=== PATIENT | male | born 1950 | race African-American/Black ===

== ENCOUNTER 2021-12-17 04:55 | Emergency (ER) | payer OTHER ==
[~2021-12-17] VITALS: Ht 185.4 cm; Wt 93.1 kg
[2021-12-17 08:48] LABS: BASOPHILS % (AUTO) 0.6 % (0-1); EOSINOPHILS # (AUTO) 0.1 X10'3 (0-0.9); EOSINOPHILS % (AUTO) 2.9 % (0-6); HEMATOCRIT 36.7 % (42.0-52.0); HEMOGLOBIN 11.7 g/dl (14.0-17.9); LYMPHOCYTES # (AUTO) 0.8 X10'3 (1.1-4.8); LYMPHOCYTES % (AUTO) 17.4 % (21-51); MEAN CORPUSCULAR HEMOGLOBIN 26.6 PG (27.0-31.0); MEAN CORPUSCULAR HGB CONC 31.9 g/dL (33.0-36.5); MEAN CORPUSCULAR VOLUME 83.5 FL (78-98); MEAN PLATELET VOLUME 7.4 FL (7.4-10.4); MONOCYTES # (AUTO) 0.4 X10'3 (0-0.9); MONOCYTES % (AUTO) 8.6 % (2-12); NEUTROPHILS # (AUTO) 3.2 X10'3 (1.8-7.7); NEUTROPHILS % (AUTO) 70.5 % (42-75); PLATELET COUNT 277 X10'3 (140-440); RED BLOOD COUNT 4.39 X10'6 (4.70-6.10); RED CELL DISTRIBUTION WIDTH 16.3 % (11.5-14.5); WHITE BLOOD COUNT 4.5 X10'3 (4.5-11.0)
[2021-12-17 09:06] LABS: ALANINE AMINOTRANSFERASE 19 U/L (12-78); ALBUMIN 3.8 G/DL (3.4-5.0); ALBUMIN/GLOBULIN RATIO 1.1 (1.1-1.5); ALKALINE PHOSPHATASE 131 IU/L (46-116); ANION GAP 8 (8-16); ASPARTATE AMINO TRANSFERASE 17 U/L (10-37); BILIRUBIN,TOTAL 0.6 MG/DL (0.1-1.0); BLOOD UREA NITROGEN 19 MG/DL (7-18); CALCIUM 8.8 MG/DL (8.5-10.1); CHLORIDE 106 MMOL/L (99-107); CREATININE 1.27 MG/DL (0.60-1.10); ETHANOL < 0.010 GM/DL (0.0-0.010); GLUCOSE 102 MG/DL (70-104); POTASSIUM 3.9 MMOL/L (3.5-5.1); SODIUM 141 MMOL/L (135-145); TOTAL PROTEIN 7.4 G/DL (6.4-8.2); eGFR 67 ML/MIN
[2021-12-17] MEDS ORDERED: ROSU5TAB12 PO (09:21)
[2021-12-17] MEDS ORDERED: PANT40TA54 PO (09:21)
[2021-12-17] MEDS ORDERED: GABA-530 PO (09:21)
[2021-12-17] MEDS ORDERED: LOSA50TA64 PO (09:21)
[2021-12-17] MEDS ORDERED: TADA5TAB13 PO (09:21)
[2021-12-17] MEDS ORDERED: AMLO5TAB16 PO (09:21)
[2021-12-17] MEDS ORDERED: MECL-226 PO (09:21)
[2021-12-17] MEDS ORDERED: CLOP75TA34 PO (09:21)
[2021-12-17] MEDS ORDERED: QUET25TA36 PO (09:21)
[2021-12-17 11:16] LABS: CLARITY,URINE CLEAR (Clear); COLOR,URINE YELLOW (Yellow); GLUCOSE, URINE NEGATIVE (Neg); KETONES,URINE NEGATIVE (Neg); LEUKOCYTE ESTERASE ,URINE NEGATIVE (Neg); NITRITES, URINE NEGATIVE (Neg); OCCULT BLOOD,URINE NEGATIVE (Neg); PH,URINE 6.5 (4.8-8.0); PROTEIN,URINE NEGATIVE (Neg); UA COLLECTION TYPE CLN CATCH MIDSTREAM; UROBILINOGEN,URINE 0.2 E.U/dL (0.2-1.0)
[2021-12-17 11:30] LABS: URINE AMPHETAMINE SCREEN NEGATIVE (Neg); URINE BARBITUATE SCREEN NEGATIVE (Neg); URINE BENZODIAZEPINES SCREEN NEGATIVE (Neg); URINE CANNABINOID SCREEN NEGATIVE (Neg); URINE COCAINE SCREEN NEGATIVE (Neg); URINE METHADONE SCREEN NEGATIVE (Neg); URINE OPIATE SCREEN NEGATIVE (Neg); URINE PHENCYCLIDINE SCREEN NEGATIVE (Neg)
[2021-12-17] MEDS ORDERED: meclizine 12.5mg tablet PO PRN (12:20)
--- NOTE | 2021-12-17 12:20 | NUR ---
Patient eating lunch. No distress observed. Continue to monitor.
--- NOTE | 2021-12-17 13:45 | NUR ---
Patient has been on the phone for 30 minutes. Patient laughing and chatting Continue to monitor.
--- NOTE | 2021-12-17 15:10 | NUR ---
Patient on the phone for long periods of time with different family/friends. No distress observed. Continue to monitor.
--- NOTE | 2021-12-17 17:05 | NUR ---
[facility], Brandi, evaluating patient. No distress observed. Continue to monitor.
[2021-12-17 17:40] VITALS: BP 160/84
[2021-12-17] MEDS ORDERED: QUEtiapine 25mg tablet PO SCH (21:00)
[2021-12-17] MEDS ORDERED: gabapentin 100mg capsule PO SCH (21:00)
[2021-12-18] MEDS ORDERED: losartan 50mg tablet PO SCH (08:00)
[2021-12-18] MEDS ORDERED: amLODIPine 5mg tablet PO SCH (08:00)
[2021-12-18] MEDS ORDERED: CIALIS 5 MG PO SCH (08:00)
[2021-12-18] MEDS ORDERED: atorvastatin 20mg tablet PO SCH (08:00)
[2021-12-18] MEDS ORDERED: pantoprazole 40mg Tablet.DR PO SCH (08:00)
[2021-12-18] MEDS ORDERED: clopidogrel 75mg tablet PO SCH (08:00)
== END 2021-12-17 18:48 | disposition home or self-care (01) ==
LOC: ER 04:56
DX: R44.1 Visual hallucinations (principal); Z20.822 Contact with and (suspected) exposure to COVID-19; F03.90 Unspecified dementia, unspecified severity, without behavioral disturbance, psychotic disturbance, mood disturbance, and anxiety; I25.10 Atherosclerotic heart disease of native coronary artery without angina pectoris; F17.200 Nicotine dependence, unspecified, uncomplicated; Z86.73 Personal history of transient ischemic attack (TIA), and cerebral infarction without residual deficits; Z86.2 Personal history of diseases of the blood and blood-forming organs and certain disorders involving the immune mechanism; Z79.899 Other long term (current) drug therapy
CPT/HCPCS: 36415; 70450; 71045; 80053; 80305; 80320; 81003; 84443; 85025; 86592; 87635; 99285; C9803